=== PATIENT | male | born 1960 | race African-American/Black ===

== ENCOUNTER 2016-07-12 13:44 | Inpatient (IN) | payer OTHER ==
[2016-07-12 16:28] VITALS: BMI 38.2
--- NOTE | 2016-07-12 17:09 | HP ---
Admission [facility] [place] [facility] - [facility] Chief Complaint: I need help to stop using drugs and alcohol Allergies/Adverse Reactions: Allergies Allergy/AdvReac Type Severity Reaction Status Date / Time No Known Allergies Allergy Verified 07/12/16 17:02 History of Present Illness: 56y/o m pt with a hx of alcohol abuse and crack abuse seeking detox . Exam Limitations: No Limitations - Ebola screening Have you traveled outside of the country in the last 21 days: No Have you had contact with anyone from an Ebola affected area: No Do you have a fever: No - Review of Systems Constitutional: Weight Stable EENT: reports: Blurred Vision Respiratory: reports: Shortness of Breath Cardiac: reports: No Symptoms Reported GI: reports: Indigestion, Other (burping) : reports: No Symptoms Reported Musculoskeletal: reports: Muscle Pain (rt sciatica), Joint Stiffness (fingers) Integumentary: reports: No Symptoms Reported Neuro: reports: Headache, Paresthesia (rt leg) Endocrine: reports: No Symptoms Reported Hematology: reports: No Symptoms Reported Psychiatric: reports: Anxious, Depressed Other Systems: Reviewed and Negative Patient History - Patient Medical History Hx Anemia: No Hx Asthma: No Hx Chronic Obstructive Pulmonary Disease (COPD): No (bronchitis ) Hx Cancer: No Hx Cardiac Disorders: No Hx Congestive Heart Failure: No Hx Hypertension: Yes Hx Hypercholesterolemia: No Hx Pacemaker: No HX Cerebrovascular Accident: No Hx Seizures: No Hx Dementia: No Hx Diabetes: No Hx Gastrointestinal Disorders: No Hx Liver Disease: No Hx Genitourinary Disorders: No Hx Sexually Transmitted Disorders: Yes Hx Renal Disease (ESRD): No Hx Thyroid Disease: No Hx Human Immunodeficiency Virus (HIV): No (2006 neg ) Hx Hepatitis C: No Hx Depression: Yes Hx Suicide Attempt: No Hx Bipolar Disorder: No Hx Schizophrenia: No Other Medical History: rt sciatica - Patient Surgical History Past Surgical History: No - PPD History Documented Results: Positive w/o proof Date: 07/10/16 (quantiferon r -tb gold ) Results: negative PPD to be Administered?: No - Reproductive History Patient is a Female of Child Bearing Age (11 -55 yrs old): No - Smoking Cessation Smoking history: Current every day smoker Have you smoked in the past 12 months: Yes Aproximately how many cigarettes per day: 3 Cigars Per Day: 0 Hx Chewing Tobacco Use: No Initiated information on smoking cessation: Yes 'Breaking Loose' booklet given: 07/12/16 - Substance & Tx. History Hx Alcohol Use: Yes Hx Substance Use: Yes Substance Use Type: Alcohol, Cocaine Hx Substance Use Treatment: Yes - Substances Abused Alcohol Route: Oral Frequency: 3-6 times per week Amount used: beer 1 qt /d , rum 1/2pt/d Age of first use: 24 Date of Last Use: 07/09/16 Crack Route: Smoking Frequency: Daily Amount used: $700-1000/d Age of first use: 24 Date of Last Use: 07/09/16 Family Disease History - Family Disease History Family Disease History: Other: Father (cirrhosis ), Mother (poisoning ) Admission Physical Exam [facility] - Vital Signs Vital Signs: Vital Signs - 24 hr 07/12/16 16:24 Temperature 96.9 F L Pulse Rate 83 Respiratory 18 Rate Blood Pressure 144/88 - Physical General Appearance: Yes: Appropriately Dressed HEENTM: Yes: Within Normal Limits, Normocephalic, Normal Voice, ELLIE Respiratory: Yes: Chest Non-Tender, Lungs Clear, Normal Breath Sounds, No Respiratory Distress Neck: Yes: Supple, Trachea in good position Breast: Yes: Within Normal Limits Cardiology: Yes: Regular Rhythm, Regular Rate, S1, S2 Abdominal: Yes: Normal Bowel Sounds, Non Tender, Soft, Protuberent Genitourinary: Yes: Hesitency Back: Yes: Decreased Range of Motion Musculoskeletal: Yes: Back pain Extremities: Yes: Other (rt leg pain) Neurological: Yes: event planner II-XII NML intact, Fully Oriented, Alert, Numbness Integumentary: Yes: Within Normal Limits Lymphatic: Yes: Within Normal Limits - Diagnostic (1) Alcohol dependence with uncomplicated withdrawal Current Visit: Yes Status: Chronic (2) Cocaine dependence Current Visit: Yes Status: Chronic (3) Right sided sciatica Current Visit: Yes Status: Chronic (4) Nicotine dependence Current Visit: Yes Status: Chronic Qualifiers: Nicotine product type: cigarettes Substance use status: uncomplicated Qualified Code(s): F17.210 - Nicotine dependence, cigarettes, uncomplicated (5) HTN (hypertension) Current Visit: Yes Status: Chronic Qualifiers: Hypertension type: essential hypertension Qualified Code(s): I10 - Essential (primary) hypertension (6) Obesity Current Visit: Yes Status: Chronic Qualifiers: Obesity severity: unspecified obesity severity Cleared for Admission [facility] - Detox or Rehab Claeared for Rehab Admission: Yes [facility] Breath Alcohol Content Breath Alcohol Content: 0 Urine Drug Screen - Results Drug Screen Negative: No Urine Drug Screen Results: BZO-Benzodiazepines
[2016-07-12] MEDS ORDERED: NICOTINE POLACRILEX 2 MG GUM BC PRN (17:29)
[2016-07-12] MEDS ORDERED: LOPERAMIDE HCL 2 MG CAPSULE PO PRN (17:29)
[2016-07-12] MEDS ORDERED: MENTHOL/PHENOL 1 EACH UD MM PRN (17:29)
[2016-07-12] MEDS ORDERED: guaiFENesin/D-METHORPHAN HB 10 ML UNIT-DOSE CUPS PO PRN (17:29)
[2016-07-12] MEDS ORDERED: MAGNESIUM CITRATE 300 ML BOTTLE PO PRN (17:29)
[2016-07-12] MEDS ORDERED: P-EPHED 60MG/TRIPROLIDI 2.5MG TABLET PO PRN (17:29)
[2016-07-12] MEDS ORDERED: ACETAMINOPHEN 325 MG TABLET (FP) PO PRN (17:29)
[2016-07-12] MEDS ORDERED: MAGNESIUM HYDROX 2400MG/30ML ORAL SUSPENSION 30 ML CUP PO PRN (17:29)
--- NOTE | 2016-07-12 19:35 | PN ---
[facility] Progress Note Note: received nurse call patient needed ppd
[2016-07-12] MEDS: IBUPROFEN 400 MG TABLET (FP) PO PRN (20:20)
[2016-07-12] MEDS ORDERED: TUBERCULIN PPD 5 TU/0.1ML VIAL ID ONE (20:23)
[2016-07-12] MEDS ORDERED: PNEUMOCOCCAL 23 VACCINE 0.5 ML VIAL IM ONE (21:15)
[2016-07-12] MEDS: THIAMINE HCL 100 MG TABLET (FP) PO SCH (22:51)
[2016-07-12 23:38] LABS: URINE APPEARANCE CLEAR; URINE BILIRUBIN NEGATIVE (NEGATIVE); URINE BLOOD NEGATIVE (NEGATIVE); URINE COLOR COLORLESS; URINE GLUCOSE (UA) NEGATIVE (NEGATIVE); URINE KETONE NEGATIVE (NEGATIVE); URINE LEUK ESTERASE NEGATIVE (NEGATIVE); URINE NITRITE NEGATIVE (NEGATIVE); URINE PROTEIN NEGATIVE (NEGATIVE); URINE UROBILINOGEN NEGATIVE E.U./dl (0.2-1.0)
[2016-07-13] MEDS: amLODIPine BESYLATE 5 MG TABLET (FP) PO SCH (09:36)
[2016-07-13] MEDS: PRENATAL VITAMINS W/ FOLIC ACID TABLET (FP) PO SCH (09:36)
[2016-07-13] MEDS: NICOTINE 14 MG/24 HOURS TOPICAL PATCH TD SCH (09:38)
[2016-07-13 10:23] LABS: ALBUMIN 3.8 g/dl (3.4-5.0); BILIRUBIN,TOTAL 0.2 mg/dL (0.2-1.0); CALCIUM 8.9 mg/dL (8.5-10.1); CREATININE 1.3 mg/dL (0.7-1.3); MCH 26.4 pg (25.7-33.7); MCHC 32.4 g/dl (32.0-35.9); MEAN CELL VOLUME 81.5 fl (80-96); PLATELET COUNT 284 K/MM3 (134-434); RDW 13.9 % (11.9-15.9); TOT PROT 6.7 g/dl (6.4-8.2); WHITE BLOOD COUNT 6.1 K/mm3 (4.0-10.0)
[2016-07-13 11:59] LABS: HIV 1 & 2 AB NEGATIVE; HIV 1 AGp24 NEGATIVE
[2016-07-13] MEDS ORDERED: PNEUMOC 13-VAL CONJ-DIP CRM/PF 0.5 ML DISP.SYRIN IM ONE (12:00)
[2016-07-13] MEDS ORDERED: PNEUMOCOCCAL 23 VACCINE 0.5 ML VIAL IM ONE (12:00)
[2016-07-13] MEDS ORDERED: INFLUENZA VACCINE 45 MCG/0.5 ML (MDV 16-17) IM ONE (12:00)
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
[2016-07-13] MEDS: THIAMINE HCL 100 MG TABLET (FP) PO SCH (22:06)
[2016-07-13] MEDS: diphenhydrAMINE HCL 50 MG CAPSULE PO PRN (22:06)
[2016-07-14] MEDS: PRENATAL VITAMINS W/ FOLIC ACID TABLET (FP) PO SCH (09:45)
[2016-07-14] MEDS: NICOTINE 14 MG/24 HOURS TOPICAL PATCH TD SCH (09:45)
[2016-07-14] MEDS: amLODIPine BESYLATE 5 MG TABLET (FP) PO SCH (09:45)
--- NOTE | 2016-07-14 13:27 | EKG ---
Test Reason : Blood Pressure : / mmHG Vent. Rate : 088 BPM Atrial Rate : 088 BPM P-R Int : 190 ms QRS Dur : 106 ms QT Int : 372 ms P-R-T Axes : 048 065 047 degrees QTc Int : 450 ms NORMAL SINUS RHYTHM NORMAL ECG NO PREVIOUS ECGS AVAILABLE Confirmed by LUPE RAHMAN MD ([id number]) on 07/14/2016 1:27:14 PM Referred By: Confirmed By:LUPE RAHMAN MD
[2016-07-14] MEDS: THIAMINE HCL 100 MG TABLET (FP) PO SCH (21:41)
[2016-07-15] MEDS: NICOTINE 14 MG/24 HOURS TOPICAL PATCH TD SCH (09:56)
[2016-07-15] MEDS: amLODIPine BESYLATE 5 MG TABLET (FP) PO SCH (09:56)
[2016-07-15] MEDS: PRENATAL VITAMINS W/ FOLIC ACID TABLET (FP) PO SCH (09:56)
[2016-07-15] MEDS: diphenhydrAMINE HCL 50 MG CAPSULE PO PRN (21:32)
[2016-07-15] MEDS: THIAMINE HCL 100 MG TABLET (FP) PO SCH (21:32)
[2016-07-16] MEDS: PRENATAL VITAMINS W/ FOLIC ACID TABLET (FP) PO SCH (09:34)
[2016-07-16] MEDS: NICOTINE 14 MG/24 HOURS TOPICAL PATCH TD SCH (09:35)
[2016-07-16] MEDS: amLODIPine BESYLATE 5 MG TABLET (FP) PO SCH (09:35)
[2016-07-16] MEDS: MAG HYDROX/AL HYDROX/SIMETH 30 ML UNIT-DOSE CUP PO PRN (14:22)
[2016-07-16] MEDS: THIAMINE HCL 100 MG TABLET (FP) PO SCH (22:03)
[2016-07-16] MEDS: diphenhydrAMINE HCL 50 MG CAPSULE PO PRN (22:03)
[2016-07-17] MEDS: IBUPROFEN 400 MG TABLET (FP) PO PRN (06:23)
--- NOTE | 2016-07-17 07:21 | PN ---
[facility] Progress Note Note: patient complained of right side chest pain alert,no respiratory distress,comfortable [id number] pulse oxymetry is 97 heent normal lung clear no abdominal pain no calf tenderness pain related to movement impression right side chest pain possible musculoskeletal treatment motrin 400 mgs po q 6hrs prn chest x ray today close monitoring
[2016-07-17] MEDS: MAG HYDROX/AL HYDROX/SIMETH 30 ML UNIT-DOSE CUP PO PRN ×2 (09:19→19:37)
[2016-07-17] MEDS: PRENATAL VITAMINS W/ FOLIC ACID TABLET (FP) PO SCH (09:36)
[2016-07-17] MEDS: NICOTINE 14 MG/24 HOURS TOPICAL PATCH TD SCH (09:36)
[2016-07-17] MEDS: amLODIPine BESYLATE 5 MG TABLET (FP) PO SCH (09:36)
[2016-07-17] MEDS: THIAMINE HCL 100 MG TABLET (FP) PO SCH (21:09)
[2016-07-17] MEDS: RANITIDINE HCL 150 MG TABLET (FP) PO SCH (21:09)
[2016-07-18] MEDS: MAG HYDROX/AL HYDROX/SIMETH 30 ML UNIT-DOSE CUP PO PRN (07:50)
[2016-07-18] MEDS: RANITIDINE HCL 150 MG TABLET (FP) PO SCH ×2 (09:38→21:59)
[2016-07-18] MEDS: PRENATAL VITAMINS W/ FOLIC ACID TABLET (FP) PO SCH (09:38)
[2016-07-18] MEDS: NICOTINE 14 MG/24 HOURS TOPICAL PATCH TD SCH (09:38)
[2016-07-18] MEDS: amLODIPine BESYLATE 5 MG TABLET (FP) PO SCH (09:38)
--- NOTE | 2016-07-18 14:54 | PN ---
Psychiatric Progress Note Vital Signs: Vital Signs Period Temp Pulse Resp BP Sys/Diaz Pulse Ox Last 24 Hr 98.1 F 69-102 15-20 120-128/72-73 Date of Session: 07/18/16 Chief Complaint:: Discharge visit HPI: Patient addressed alcohol and cocaine dependence comorbid with Learning disability. ROS: GERD,Obesity,HTN. Current Medications: Active Medications Generic Name Dose Route Start Last Admin Trade Name Freq PRN Reason Stop Dose Admin Acetaminophen 650 mg 07/12/16 17:29 Tylenol - PO Q4H PRN PAIN Al Hydroxide/Mg Hydroxide 30 ml 07/12/16 17:29 07/18/16 07:50 Mylanta Oral Suspension - PO 30 ml Q6H PRN Administration DYSPEPSIA Amlodipine Besylate 5 mg 07/13/16 10:00 07/18/16 09:38 Norvasc - PO 5 mg DAILY DIAZ Administration Diphenhydramine HCl 50 mg 07/12/16 17:29 07/16/16 22:03 Benadryl - PO 50 mg HSMR1 PRN Administration INSOMNIA Eucalyptus/Menthol/Phenol/Sorbitol 1 each 07/12/16 17:29 Cepastat Lozenge - MM Q4H PRN SORE THROAT Guaifenesin 10 ml 07/12/16 17:29 07/15/16 19:34 Robitussin Dm - PO 10 ml Q6H PRN Administration COUGH Ibuprofen 400 mg 07/12/16 17:29 07/17/16 06:23 Motrin - PO 400 mg Q6H PRN Administration SEVERE PAIN Loperamide HCl 4 mg 07/12/16 17:29 Imodium - PO Q6H PRN DIARRHEA Magnesium Citrate 300 ml 07/12/16 17:29 Citroma - PO Q48H PRN CONSTIPATION Magnesium Hydroxide 30 ml 07/12/16 17:29 Milk Of Magnesia - PO DAILY PRN CONSTIPATION Nicotine 14 mg 07/13/16 10:00 07/18/16 09:38 Nicoderm Patch - TD 14 mg DAILY DIAZ Administration Nicotine Polacrilex 2 mg 07/12/16 17:29 Nicorette Gum - BC Q2H PRN NICOTINE REPLACEMENT RX Multivit/Folic Acid/Iron 1 tab 07/13/16 10:00 07/18/16 09:38 Vitamins (Sjr) - PO 1 tab DAILY DIAZ Administration Pseudoephedrine/Triprolidine 1 combo 07/12/16 17:29 07/15/16 06:38 Actifed - PO 1 combo TID PRN Administration NASAL CONGESTION Ranitidine HCl 150 mg 07/17/16 22:00 07/18/16 09:38 Zantac - PO 150 mg BID DIAZ Administration Thiamine HCl 100 mg 07/12/16 22:00 07/17/16 21:09 Vitamin B1 - PO 100 mg HS DIAZ Administration Current Side Effect: No Lab tests ordered: No Lab tests reviewed: Yes Provider note:: Patient will complete this program tomorrow 07/19/16.He has met his treatment goals and will continue to address his issues on outpatient basis attending AA,NA meetings. Patient continues to find that current treatment helped him to reduce craving,use his coping skills and support system. Patient is stable for discharge tomorrow 07/19/16. Total face to face time:: 30 Psychiatric Treatment Plan - Problem List (1) Learning disability Current Visit: Yes (2) Alcohol dependence with uncomplicated withdrawal Current Visit: Yes (3) Cocaine dependence Current Visit: Yes (4) HTN (hypertension) Current Visit: Yes Qualifiers: Hypertension type: essential hypertension Qualified Code(s): I10 - Essential (primary) hypertension (5) Nicotine dependence Current Visit: Yes Qualifiers: Nicotine product type: cigarettes Substance use status: uncomplicated Qualified Code(s): F17.210 - Nicotine dependence, cigarettes, uncomplicated (6) Obesity Current Visit: Yes Qualifiers: Obesity severity: unspecified obesity severity (7) Right sided sciatica Current Visit: Yes
[2016-07-18] MEDS: diphenhydrAMINE HCL 50 MG CAPSULE PO PRN (21:06)
[2016-07-18] MEDS: THIAMINE HCL 100 MG TABLET (FP) PO SCH (21:06)
[2016-07-19 06:49] VITALS: BP 112/67; PULSE 87; TEMP 98
[2016-07-19] MEDS: amLODIPine BESYLATE 5 MG TABLET (FP) PO SCH (09:55)
[2016-07-19] MEDS: PRENATAL VITAMINS W/ FOLIC ACID TABLET (FP) PO SCH (09:55)
[2016-07-19] MEDS: RANITIDINE HCL 150 MG TABLET (FP) PO SCH (09:55)
[2016-07-19] MEDS: NICOTINE 14 MG/24 HOURS TOPICAL PATCH TD SCH (09:55)
== END 2016-07-19 08:30 | disposition home or self-care (01) | DRG 772 ==
LOC: YASAS 13:44 → Y5N 16:04
PROVIDERS: ADMIT Psychiatry & Neurology Psychiatry; ATTEND Psychiatry & Neurology Psychiatry
PROC: HZ42ZZZ Group Counseling for Substance Abuse Treatment, Cognitive-Behavioral (ICD-10-PCS; principal; 2016-07-12)
DX: F10.20 Alcohol dependence, uncomplicated (principal); F14.20 Cocaine dependence, uncomplicated; F17.210 Nicotine dependence, cigarettes, uncomplicated; F81.89 Other developmental disorders of scholastic skills; I10 Essential (primary) hypertension; E66.9 Obesity, unspecified; Z68.38 Body mass index [BMI] 38.0-38.9, adult; M54.31 Sciatica, right side; R07.9 Chest pain, unspecified
CPT/HCPCS: 36415; 71010-TC; 80053; 81003; 85027; 86593; 87389; 90732; 93005; 93010; G0009